=== PATIENT | female | born 1975 | race Caucasian/White ===

== ENCOUNTER 2018-01-30 14:41 | Emergency (ER) | payer OTHER, MEDICAID ==
[~2018-01-30] VITALS: Ht 162.6 cm; Wt 88.9 kg
[2018-01-30 14:50] VITALS: Ht 162.6 cm; Wt 88.9 kg
[2018-01-30 15:26] LABS: BASOPHIL % 0.5 % (0-2); PLATELET COUNT 202 x10^3mcL (130-400); RED CELL DISTRIBUTION WIDTH 15.1 % (11.5-14.5)
[2018-01-30 15:51] LABS: ALBUMIN 3.6 g/dL (3.4-5.0); ALKALINE PHOSPHATASE 51 U/L (46-116); ALT/SGPT 21 U/L (14-59); AST/SGOT 17 U/L (15-37); BILIRUBIN TOTAL 0.4 mg/dL (0.20-1.00); CHLORIDE SERUM 104 mmol/L (98-107); CREATININE SERUM 0.8 mg/dL (0.6-1.0); GFR1 > 60 mL/min; GLUCOSE SERUM 99 mg/dL (74-106); LIPASE 107 IU/L (73-393); POTASSIUM SERUM 3.4 mmol/L (3.5-5.1); SODIUM SERUM 135 mmol/L (136-145); TOTAL PROTEIN, SERUM 7.4 g/dL (6.4-8.2)
[2018-01-30 16:08] LABS: CALCIUM 8.6 mg/dL (8.5-10.1)
[2018-01-30 18:03] VITALS: BP 101/43
== END 2018-01-30 18:03 | disposition home or self-care (01) ==
LOC: ED 14:41
PROVIDERS: Emergency Medicine
DX: G89.29 Other chronic pain (principal); R10.30 Lower abdominal pain, unspecified; Z88.0 Allergy status to penicillin; Z90.710 Acquired absence of both cervix and uterus
CPT/HCPCS: J2270; J2405; J7030

== ENCOUNTER 2019-10-12 19:43 | Emergency (ER) | payer OTHER ==
[~2019-10-12] VITALS: Ht 160 cm; Wt 133.4 kg
[2019-10-12 20:31] LABS: BASOPHIL % 1.3 % (0-2); PLATELET COUNT 338 x10^3mcL (130-400)
[2019-10-12 20:33] LABS: RED CELL DISTRIBUTION WIDTH 18.6 % (11.5-14.5)
[2019-10-12 20:38] LABS: CALCIUM 7.7 mg/dL (8.5-10.1); CARBON DIOXIDE 25.9 mmol/L (21-32); CHLORIDE SERUM 104 mmol/L (98-107); CREATININE SERUM 0.9 mg/dL (0.6-1.0); GFR1 > 60 mL/min; GLUCOSE SERUM 102 mg/dL (74-106); POTASSIUM SERUM 4.1 mmol/L (3.5-5.1); SODIUM SERUM 139 mmol/L (136-145)
[2019-10-12 20:41] LABS: AMPHETAMINE QUAL UR NONE DETECTED (See below)
[2019-10-12 20:47] LABS: ALBUMIN 2.8 g/dL (3.4-5.0); ALKALINE PHOSPHATASE 95 U/L (46-116); ALT/SGPT 80 U/L (14-59); AST/SGOT 109 U/L (15-37)
[2019-10-12 20:55] LABS: T3 TOTAL 1.73 ng/mL
[2019-10-12 21:58] LABS: FREE T4 0.94 ng/dL (0.76-1.46); FREE THYROXINE INDEX 2.2 ug/dL (1.4-4.5); T4(THYROXINE) 8.9 ug/dL (4.7-13.3)
[2019-10-12 23:16] VITALS: BP 135/78
== END 2019-10-13 01:47 | disposition left against medical advice (07) ==
LOC: ED 19:43
PROVIDERS: Emergency Medicine
DX: R45.851 Suicidal ideations (principal); F31.9 Bipolar disorder, unspecified; J45.909 Unspecified asthma, uncomplicated; Z98.890 Other specified postprocedural states; Z13.9 Encounter for screening, unspecified; Z90.710 Acquired absence of both cervix and uterus
CPT/HCPCS: 84439; G0480